=== PATIENT | female | born 1970 | race Caucasian/White ===

== ENCOUNTER 2019-11-06 10:25 | Emergency (ER) | payer SELFPAY ==
[~2019-11-06] VITALS: Ht 152.4 cm; Wt 82.6 kg
[2019-11-06 11:06] VITALS: BP 156/84
== END 2019-11-06 11:35 | disposition home or self-care (01) ==
LOC: ED 10:25
DX: H66.91 Otitis media, unspecified, right ear (principal); B34.9 Viral infection, unspecified; I10 Essential (primary) hypertension

== ENCOUNTER 2019-11-27 17:59 | Emergency (ER) | payer MEDICAID ==
[~2019-11-27] VITALS: Ht 165.1 cm; Wt 83.5 kg
[2019-11-27 18:16] VITALS: Ht 165.1 cm; Wt 83.5 kg
[2019-11-27 19:17] LABS: BASOPHIL % 0.3 % (0-2)
[2019-11-27 19:19] LABS: PLATELET COUNT 444 x10^3mcL (130-400); RED CELL DISTRIBUTION WIDTH 17.7 % (11.5-14.5)
[2019-11-27 19:24] LABS: UA SPECIFIC GRAVITY 1.025 (1.005-1.035); microscopic required? YES; urine erythrocyte 3+ (NEGATIVE)
[2019-11-27 19:25] LABS: ALBUMIN 3.3 g/dL (3.4-5.0); CARBON DIOXIDE 28.1 mmol/L (21-32); CHLORIDE SERUM 105 mmol/L (98-107); CREATININE SERUM 0.5 mg/dL (0.6-1.0); GFR1 > 60 mL/min; GLUCOSE SERUM 91 mg/dL (74-106); SODIUM SERUM 140 mmol/L (136-145); TOTAL PROTEIN, SERUM 7.7 g/dL (6.4-8.2)
[2019-11-27 19:26] LABS: ALKALINE PHOSPHATASE 53 U/L (46-116); ALT/SGPT 22 U/L (14-59); AST/SGOT 14 U/L (15-37); BILIRUBIN TOTAL 0.1 mg/dL (0.20-1.00); CALCIUM 8.6 mg/dL (8.5-10.1)
[2019-11-27 20:30] VITALS: BP 161/89
== END 2019-11-27 20:30 | disposition home or self-care (01) ==
LOC: ED 17:59
PROVIDERS: Emergency Medicine
DX: D25.9 Leiomyoma of uterus, unspecified (principal); I10 Essential (primary) hypertension
CPT/HCPCS: J7030

== ENCOUNTER 2020-05-19 16:44 | Emergency (ER) | payer SELFPAY ==
[~2020-05-19] VITALS: Ht 152.4 cm; Wt 81.6 kg
[2020-05-19 18:15] VITALS: Ht 152.4 cm; Wt 81.6 kg
[2020-05-19 19:08] LABS: BASOPHIL % 0.2 % (0-2); PLATELET COUNT 283 x10^3mcL (130-400); RED CELL DISTRIBUTION WIDTH 17.4 % (11.5-14.5)
[2020-05-19 19:34] LABS: ALKALINE PHOSPHATASE 49 U/L (46-116); ALT/SGPT 35 U/L (14-59); AST/SGOT 25 U/L (15-37); BILIRUBIN TOTAL 0.3 mg/dL (0.20-1.00); C REACTIVE PROTEIN 10.6 mg/dL (<=0.9); CALCIUM 8.2 mg/dL (8.5-10.1); CARBON DIOXIDE 29.1 mmol/L (21-32); CHLORIDE SERUM 99 mmol/L (98-107); CREATININE SERUM 0.8 mg/dL (0.6-1.0); GFR1 > 60 mL/min; GLUCOSE SERUM 106 mg/dL (74-106); LACTIC DEHYDROGENASE (LDH) 288 U/L (100-190); SODIUM SERUM 137 mmol/L (136-145); TOTAL PROTEIN, SERUM 7.4 g/dL (6.4-8.2)
[2020-05-19 19:43] LABS: ALBUMIN 3.2 g/dL (3.4-5.0); POTASSIUM SERUM 2.9 mmol/L (3.5-5.1)
[2020-05-19 21:30] LABS: microscopic required? YES; urine erythrocyte 1+ (NEGATIVE)
[2020-05-19 22:30] VITALS: BP 98/56
== END 2020-05-19 22:30 | disposition home or self-care (01) ==
LOC: ED 16:44
PROVIDERS: Emergency Medicine
DX: U07.1 COVID-19 (principal); J12.89 Other viral pneumonia; I10 Essential (primary) hypertension
CPT/HCPCS: 83880; 85378; 87804; J0456; J0696; J7030; J7050; J7060; Q0092; U0003-CS